=== PATIENT | male | born 1975 | race African-American/Black ===

== ENCOUNTER 2020-05-07 14:49 | Emergency (ER) | payer OTHER, SELFPAY ==
[2020-05-07 15:01] VITALS: BP 165/95; PULSE 61; RESP 20; TEMP 36.3; O2SAT 99
--- NOTE | 2020-05-07 15:23 | ED.EXTPRO ---
HPI - Extremity Problem General Chief complaint: Extremity Problem,Nontraumatic Stated complaint: ankles/feet swelling Time Seen by Provider: 05/07/20 15:24 Source: patient and RN notes reviewed Mode of arrival: ambulatory Limitations: no limitations History of Present Illness HPI Narrative: This is a 44 years old male presented office for evaluation of bilateral leg swelling for 3 days. He also reported weight gain for about 12 to 14 pounds in over 10 days. Denies any other associated symptoms include chest pain, palpitation, shortness of breath at rest, nauseous or feeling ill. He has been having trouble with insomnia due to his history of working at night for a long period of time, he has been taking [id number] Ronna-Call decongestion nightime pills for last 2 weeks to help him sleep. Denies past medical history of hypertension, CAD, high cholesterol or heart failure in the family. Related Data Home Medications Medication Instructions Recorded Confirmed zolpidem 05/07/20 Allergies Allergy/AdvReac Type Severity Reaction Status Date / Time hydroxyzine Allergy Mild SWELLING Verified 12/17/17 09:41 MEPERIDINE HCL Allergy Mild SWELLING Uncoded 12/17/17 09:41 Review of Systems Review of Systems: Narrative: CONSTITUTIONAL: Denies fever or feeling ill. ENT: Denies rhinorrhea, congestion, sore throat CARDIOVASCULAR: Denies chest pain, palpitation. Reports lower leg edema. RESPIRATORY: Denies dyspnea, wheezing, cough GASTROINTESTINAL: Denies abdominal pain, nausea, vomiting, diarrhea. GENITOURINARY: Denies urinary symptoms SKIN: Denies rash MUSCULOSKELETAL: Denies acute back pain NEUROLOGIC: Denies lightheaded/dizziness All systems reviewed & are unremarkable except as noted in HPI and below PMFSH Past Medical History Medical History (Updated 05/07/20 @ 15:51 by KYLE Calvert) Insomnia Surgical History Surgical History (Updated 05/07/20 @ 15:51 by KYLE Calvert) History of repair of ACL Hx of aortic valve replacement Comments At time of signature, I agree with nursing past medical, surgical, social and family history. There is no relevant family history pertinent to the presenting complaint. Exam Narrative: Exam Narrative: GENERAL: This is a well-nourished, well-developed patient, in no apparent distress. EYES: Sclera clear/white. Vision is grossly intact. EARS: External ears normal. Hearing grossly intact. NOSE: External nose normal CARDIOVASCULAR: Regular rate and rhythm without murmurs, gallops, or rubs. RESPIRATORY: Clear to auscultation. Breath sounds equal bilaterally. No wheezes, rales, or rhonchi. GASTROINTESTINAL: Abdomen soft, non-tender, nondistended. Bowel sounds are active. No hepato-splenomegaly, or palpable masses. No guarding. SKIN: warm, intact with no suspicious lesions or rash, good texture and turgor. NEURO: awake, alert, and oriented to person, place and time. There were no obvious focal neurologic abnormalities. Steady gait EXTREMITIES: Normal range of motion. Pitting edematous noted in lower legs. BACK: Nontender without deformity or crepitance. Ana Coma Scale Eye Opening: Spontaneous 4 Ana Coma Scale Motor: Obeys Commands 6 [place] Coma Scale Verbal: Oriented 5 Course Vital Signs Vital signs: Vital Signs Temperature 97.4 F L 05/07/20 15:01 Pulse Rate 61 05/07/20 15:01 Respiratory Rate 20 05/07/20 15:01 Blood Pressure 165/95 H 05/07/20 15:01 Pulse Oximetry 99 05/07/20 15:01 Temperature 97.4 F L 05/07/20 15:01 Pulse Rate 61 05/07/20 15:01 Respiratory Rate 20 05/07/20 15:01 Blood Pressure 165/95 H 05/07/20 15:01 Pulse Oximetry 99 05/07/20 15:01 MDM - Extremity (Nontraumatic) MDM Narrative Medical decision making narrative: Elevated blood pressure noted, recommend follow-up with his doctor for recheck in 2 weeks Discharge instructions reviewed with patient, as well as provided in writing per stormy
== END 2020-05-07 15:49 | disposition home or self-care (01) ==
PROVIDERS: Emergency Provider Nurse Practitioner; PCP Family Medicine
DX: R60.0 Localized edema (principal); Z96.651 Presence of right artificial knee joint; I34.1 Nonrheumatic mitral (valve) prolapse; R03.0 Elevated blood-pressure reading, without diagnosis of hypertension
CPT/HCPCS: 99211; G0463

== ENCOUNTER 2020-06-02 11:36 | Emergency (ER) | payer OTHER, SELFPAY ==
--- NOTE | ~2020-06-02 | XR_ITS ---
XR chest 2V DATE: 06/02/2020 13:29 INDICATION: Midsternal chest pain for one month. TECHNIQUE: PA and lateral views COMPARISON: 12/17/2017 PA and lateral chest FINDINGS: Normal heart size. No hilar or mediastinal enlargement. No pulmonary infiltrate or consolid ation, pleural effusion or pulmonary vascular congestion or pneumothorax. Postoperative change from cervical spine fusion. Mild dextroscoliosis of the thoracic spine. IMPRESSION: No active cardiopulmonary disease Reviewed, dictated and finalized at location A.
[2020-06-02 12:05] VITALS: BP 174/93; PULSE 84; RESP 16; TEMP 37.1; O2SAT 98
--- NOTE | 2020-06-02 12:54 | ECG_ITS ---
Measurements Intervals [place] Rate: 77 P: 18 [place]: 162 QRS: -12 QRSD: 106 T: 37 QT: 365 QTc: 413 Interpretive Statements SINUS RHYTHM INCOMPLETE RIGHT BUNDLE BRANCH BLOCK DELAYED PRECORDIAL R/S TRANSITION BORDERLINE ECG Electronically Signed On 06-02-2020 12:58:56 CDT by George Haines D.O.
[2020-06-02 12:55] VITALS: BP 151/88; PULSE 84; RESP 23; O2SAT 97
[2020-06-02 12:58] VITALS: PULSE 84
[2020-06-02 13:22] LABS: Basophils Absolute Auto 0.1 K/mm3 (0.0-0.1); Basophils Percent Auto 1.3 % (0.2-1.2); Eosinophils Absolute Auto 0.1 K/mm3 (0-0.3); Eosinophils Percent Auto 1.4 % (0-4.4); Hematocrit 42.1 % (42.0-52.0); Hemoglobin 14.2 g/dL (14.0-18.0); Immature Granulocyte Absolute 0.03 K/mm3 (0.00-0.031); Immature Granulocyte Percent A 0.4 % (0-0.5); Lymphocytes Absolute Auto 1.85 K/mm3 (0.9-3.2); Lymphocytes Percent Auto 26.4 % (18.3-44.2); Mean Corpuscular HGB Conc 33.7 g/dl (32-36); Mean Corpuscular Hemoglobin 27.5 pg (26-34); Mean Corpuscular Volume 81.6 fl (80-100); Mean Platelet Volume 9.3 fl (7.4-10.4); Monocytes Absolute Auto 0.5 K/mm3 (0.1-0.6); Monocytes Percent Auto 6.7 % (2.6-8.5); Neutrophils Absolute Auto 4.5 K/mm3 (1.3-6.7); Neutrophils Percent Auto 63.8 % (45.5-73.1); Platelet Count Result 280 k/mm3 (150-375); Red Blood Count 5.16 M/mm3 (4.6-6.20); Red Cell Distribution Width 14.2 % (11.5-14.5)
[2020-06-02 13:31] LABS: Prothrombin Time 13.3 Seconds (11.1-14.7)
[2020-06-02 13:32] LABS: Partial Thromboplastin Time 37.3 SECONDS (22.3-36.8)
[2020-06-02 13:47] LABS: Blood Urea Nitrogen 13 mg/dL (9-20); Calcium 9.3 mg/dL (8.4-10.2); Carbon Dioxide 25 mmol/L (22-30); Chloride 104 mmol/L (98-107); Estimated CRCL calculation 114 ml/min; Estimated Glomerular Filt Rate > 60; Glucose 106 mg/dL (75-110); Sodium 139 mmol/L (137-145)
[2020-06-02 13:58] LABS: Troponin I < 0.012 ng/mL (0.000-0.034)
[2020-06-02] MEDS: ASPIRIN 81 MG CHEWABLE TABLET 243 MG PO (14:02)
[2020-06-02 14:14] VITALS: BP 157/83; PULSE 70; RESP 18; O2SAT 95
--- NOTE | 2020-06-02 14:24 | ED.CHESTPAIN ---
HPI - Chest Pain General Chief Complaint: Chest Pain Stated Complaint: chest pain x 3 weeks Time Seen by Provider: 06/02/20 13:11 Source: patient History of Present Illness HPI narrative: 44 years old -[place] male, unremarkable past medical history presents with constant pain at the right chest, with intermittent flareup. For the last 2 months. Patient did not seen a doctor yet, squeezing type of pain, no radiation, showed no shortness of breath. Patient did not try any [id number] medication yet. Currently his pain is 3 out of 10. Patient denies any fever, chills, nausea, vomiting, shortness of breath, coughing, exposure to anybody with COVID-19. Patient does not smoke, does not drink, does not use drugs, no family history of coronary artery disease. Related Data Home Medications Medication Instructions Recorded Confirmed zolpidem 10 mg PO 05/07/20 esomeprazole magnesium [Nexium] 20 mg PO DAILY 06/02/20 06/02/20 loratadine [Claritin] 10 mg PO DAILY 06/02/20 06/02/20 Allergies Allergy/AdvReac Type Severity Reaction Status Date / Time hydroxyzine Allergy Mild SWELLING Verified 06/02/20 13:03 MEPERIDINE HCL Allergy Mild SWELLING Uncoded 06/02/20 13:03 Review of Systems Review of Systems: Narrative: CONSTITUTIONAL: Denies fever, chills, or sweats. EYES: Denies visual changes, redness, or discharge. ENT: Denies rhinorrhea, congestion, sore throat, or otalgia. CARDIOVASCULAR: Denies chest pain, palpitations, or edema. RESPIRATORY: Denies cough or dyspnea. GASTROINTESTINAL: Denies abdominal pain, nausea, vomiting, or diarrhea. GENITOURINARY: Denies dysuria or hematuria. SKIN: Denies rash or itching. MUSCULOSKELETAL: Denies back pain, joint pain, or myalgia. NEUROLOGIC: Denies headache, numbness, or weakness. PSYCHIATRIC: Denies anxiety or depression. [facility] Past Medical History Medical History (Updated 06/02/20 @ 14:32 by Doreen Baca MD) Insomnia Surgical History Surgical History (Updated 05/07/20 @ 15:51 by KYLE Calvert) History of repair of ACL Hx of aortic valve replacement Social History Social History : Male Course Course Emergency Course: Stable Vital Signs Vital signs: Vital Signs Temperature 37.1 C 06/02/20 12:05 Pulse Rate 84 06/02/20 12:05 Respiratory Rate 16 06/02/20 12:05 Blood Pressure 174/93 H 06/02/20 12:05 Pulse Oximetry 98 06/02/20 12:05 Temperature 37.1 C 06/02/20 12:05 Pulse Rate 70 06/02/20 14:14 Respiratory Rate 18 06/02/20 14:14 Blood Pressure 157/83 H 06/02/20 14:14 Pulse Oximetry 95 06/02/20 14:14 MDM - Chest Pain MDM Narrative Medical decision making narrative: Noncardiac chest pain is my concern. Musculoskeletal pain is high likely. Cardiac protocol ordered. Chest x-ray. Further plan to follow Differential Diagnosis Differential diagnosis: Likely stable angina, costochondritis and chest pain Lab Data Result diagrams: 06/02/20 13:12 06/02/20 13:12 Labs: Lab Results 06/02/20 06/02/20 06/02/20 Range/Units 13:12 13:12 13:12 WBC 7.0 (4.5-10.0) K/mm3 RBC 5.16 (4.6-6.20) M/mm3 Hgb 14.2 (14.0-18.0) g/dL Hct 42.1 (42.0-52.0) % MCV 81.6 (80-100) fl MCH 27.5 (26-34) pg MCHC 33.7 (32-36) g/dl RDW 14.2 (11.5-14.5) % Plt Count 280 (150-375) k/mm3 MPV 9.3 (7.4-10.4) fl Immature Gran % (Auto) 0.4 (0-0.5) % Neut % (Auto) 63.8 (45.5-73.1) % Lymph % (Auto) 26.4 (18.3-44.2) % Coffee % (Auto) 6.7 (2.6-8.5) % Eos % (Auto) 1.4 (0-4.4) % Baso % (Auto) 1.3 H (0.2-1.2) % Lymph # (Auto) 1.85 (0.9-3.2) K/mm3 Coffee # (Auto) 0.5 (0.1-0.6) K/mm3 Eos # (Auto) 0.1 (0-0.3) K/mm3 Baso # (Auto) 0.1 (0.0-0.1) K/mm3 Abs Immat Gran (auto) 0.03 (0.00-0.031) K/mm3 Absolute Neuts (auto) 4.5 (1.3-6.7)
[2020-06-02 14:43] VITALS: BP 157/83; PULSE 66; RESP 20; O2SAT 96
== END 2020-06-02 14:45 | disposition home or self-care (01) ==
PROVIDERS: Emergency Medicine; Emergency Provider Emergency Medicine; PCP Family Medicine
DX: R07.9 Chest pain, unspecified (principal)
CPT/HCPCS: 36415; 71046; 80048; 84484; 85025; 85610; 85730; 93005; 99284; A9270

== ENCOUNTER 2020-07-03 19:50 | Emergency (ER) | payer OTHER, SELFPAY ==
[2020-07-03 20:05] VITALS: BP 163/98; PULSE 76; RESP 14; TEMP 36.5; O2SAT 99
--- NOTE | 2020-07-03 21:41 | PC.NURSE ---
Addendum entered by Rusty Cervantes RN 07/03/20 21:42: This note should read: Patient called to go to room, no answer at this time. Original Note: Patient called to triage, no answer at this time.
== END 2020-07-03 21:41 | disposition left against medical advice (07) ==
LOC: ANHED 23:10
PROVIDERS: PCP Family Medicine
DX: Z53.21 Procedure and treatment not carried out due to patient leaving prior to being seen by health care provider (principal)
CPT/HCPCS: 99199

== ENCOUNTER 2022-10-03 08:26 | Emergency (ER) | payer OTHER, SELFPAY ==
[2022-10-03 08:30] VITALS: BP 152/67; PULSE 82; RESP 17; TEMP 37.1; O2SAT 99
--- NOTE | 2022-10-03 08:58 | ED.BACK ---
HPI - Back Pain/Injury General Chief Complaint: Back Pain/Injury <JAMESON Wilson Last Filed: 10/03/22 09:44> Stated Complaint: back spasms <JAMESON Wilson Last Filed: 10/03/22 09:44> Time Seen by Provider: 10/03/22 08:51 <JAMESON Wilson Last Filed: 10/03/22 09:44> History of Present Illness HPI Narrative: Patient is a 46-year-old male with no significant past medical history here for evaluation of left-sided back spasms since yesterday. Patient states that he was helping his uncle move out of bed, bending over at his hips when he noticed a spasm in the left side of his back. Yesterday, he attempted Tylenol and his TENS unit without significant relief. Today he woke up and back pain was present on both sides. He has been able to walk but states it is somewhat painful. Denies any incontinence or retention of bowel or bladder, fevers, chills, direct trauma to the back. <JAMESON Wilson Last Filed: 10/03/22 09:44> Related Data Home Medications: Home Medications Medication Instructions Recorded Confirmed zolpidem 10 mg tablet 10 mg PO 05/07/20 esomeprazole magnesium 20 mg 20 mg PO DAILY 06/02/20 06/02/20 capsule,delayed release (Nexium) loratadine 10 mg tablet (Claritin) 10 mg PO DAILY 06/02/20 06/02/20 <JAMESON Wilson Last Filed: 10/03/22 09:44> Allergies/Adverse Reactions: Allergies Allergy/AdvReac Type Severity Reaction Status Date / Time hydroxyzine Allergy Mild SWELLING Verified 10/03/22 08:59 meperidine [From Demerol] Allergy Swelling Verified 10/03/22 08:59 MEPERIDINE HCL Allergy Mild SWELLING Uncoded 10/03/22 08:59 <JAMESON Wilson Last Filed: 10/03/22 09:44> Review of Systems Review of Systems: Gen.: Denies fevers or chills Eyes: Denies eye pain or visual change ENT: Denies congestion Respiratory: Denies shortness of breath or cough CV: Denies chest pain or palpitations GI: Denies abdominal pain nausea, emesis or diarrhea denies burning, urgency, frequency or hematuria Musculoskeletal: Reports back pain. Neuro: Denies numbness, tingling, weakness or focal weakness Skin: Denies rash Except as documented, all other systems reviewed and negative <Karen Casillas PA-C - Last Filed: 10/03/22 09:44> [facility] Past Medical History Medical History: Medical History Insomnia <Karen Casillas PA-C - Last Filed: 10/03/22 09:44> Surgical History Surgical History: Surgical History History of repair of ACL Hx of aortic valve replacement <Karen Casillas PA-C - Last Filed: 10/03/22 09:44> Social History Social History: Social History Gender identity (if verbalized by the patient): Male <Karen Casillas PA-C - Last Filed: 10/03/22 09:44> Exam Narrative: APPEARANCE: Well appearing, no pain in distress, well-nourished. Head: Normocephalic and atraumatic. EYES: PERRLA/EOMI, conjunctivae clear NOSE: No nasal drainage EARS: External ear normal in appearance THROAT: Oropharynx is clear. Mucous membranes are moist. NECK: Supple. No adenopathy, no masses. RESPIRATORY: Airway patent, respirations nonlabored. Clear to auscultation bilaterally, no rales, rhonchi, wheezing. CARDIOVASCULAR: Regular rate and rhythm without murmurs, rubs, or gallops. ABDOMINAL: Normoactive bowel sounds. Soft, nontender, nondistended. No rebound tenderness or guarding. MUSCULOSKELETAL: Palpable muscle spasm to the left paraspinal muscles along t9-t10. No midline tenderness to C, T, L-spine. Normal gait. NEURO: No weakness in limbs. Normal speech. No focal neurologic deficits. SKIN: Skin is warm and dry. No rashes. PSYCHIATRIC: Normal affect/mood. <Karen Casillas PA-C - Last Filed:
[2022-10-03] MEDS: KETOROLAC 30 MG/ML VIAL (*BKC) IM (09:03)
[2022-10-03] MEDS: LIDOCAINE 5% PATCH 1 PATCH TRANSDERM (09:24)
== END 2022-10-03 09:50 | disposition home or self-care (01) ==
PROVIDERS: Emergency Provider Emergency Medicine; PCP Family Medicine
DX: S39.012A Strain of muscle, fascia and tendon of lower back, initial encounter (principal); Z95.2 Presence of prosthetic heart valve; X50.0XXA Overexertion from strenuous movement or load, initial encounter; Y93.F2 Activity, caregiving, lifting
CPT/HCPCS: 96372; 99283; A9270; J1885

== ENCOUNTER 2022-10-05 02:59 | Emergency (ER) | payer OTHER, SELFPAY ==
[2022-10-05 03:05] VITALS: BP 143/94; PULSE 78; RESP 16; O2SAT 100
[2022-10-05] MEDS: HYDROcodone/acetaminophen (*CRX) 5-325 MG TABLET 1 TAB PO (03:18)
[2022-10-05] MEDS: KETOROLAC (*BKC) 60 MG/2 ML VIAL IM (03:18)
[2022-10-05] MEDS: ORPHENADRINE CITRATE 100 MG TABLET.ER PO (03:19)
--- NOTE | 2022-10-05 03:24 | ED.GENADULT ---
HPI - General Adult General Chief complaint: Back Pain/Injury Stated complaint: back pain Time Seen by Provider: 10/05/22 03:06 History of Present Illness HPI narrative: Patient is a 46-year-old gentleman who presents emergency department with chief complaint of back pain patient states has been having pain for several days in the left muscles of his back after he was lifting a family member who was seen in the emergency department several muscle relaxers saw his primary provider who started him on Tylenol with codeine patient states he last took a dose around 9 PM this evening patient states the pain is worse with movement and improved with rest the patient denies bowel or bladder dysfunction denies foot drop Related Data Home Medications Medication Instructions Recorded Confirmed zolpidem 10 mg tablet 10 mg PO 05/07/20 esomeprazole magnesium 20 mg 20 mg PO DAILY 06/02/20 06/02/20 capsule,delayed release (Nexium) loratadine 10 mg tablet (Claritin) 10 mg PO DAILY 06/02/20 06/02/20 Allergies Allergy/AdvReac Type Severity Reaction Status Date / Time hydroxyzine Allergy Mild SWELLING Verified 10/03/22 08:59 meperidine [From Demerol] Allergy Swelling Verified 10/03/22 08:59 MEPERIDINE HCL Allergy Mild SWELLING Uncoded 10/03/22 08:59 Review of Systems Review of Systems: A 10 system review of systems was completed on the patient and is negative except for what is stated in the HPI. Nursing and ancillary documentation was reviewed. [facility] [place] Past Medical History Medical History Insomnia Surgical History Surgical History History of repair of ACL Hx of aortic valve replacement Social History Social History Gender identity (if verbalized by the patient): Male Exam Narrative: GENERAL: Well-appearing, well-nourished, and in no acute distress. HEAD: Normocephalic, atraumatic. EYES: PERRLA and EOMI. ENT: Nares clear, no rhinorrhea or epistaxis. Mucous membranes moist. NECK: Supple. CHEST: Clear to auscultation. No respiratory distress. HEART: Regular rate and rhythm. No murmur heard. Normal peripheral pulses. ABDOMEN: Soft, nontender, nondistended, normal active bowel sounds. Back: There is tenderness to palpation of the paraspinous muscles of the back EXTREMITIES: Normal range of motion. No edema. SKIN: Warm, dry, no rash. NEURO: No focal deficits. Alert and oriented x3. No saddle anesthesia, moves all extremities normally PSYCH: Normal mood and affect. Course Course Emergency Course: Patient is feeling somewhat better but still sore. He was discussed with the patient that there is a high likelihood that he will be sore for several days. The patient was instructed to return precautions if he develops bowel or bladder dysfunction or motor weakness Vital Signs Vital signs: Vital Signs Pulse Rate 78 10/05/22 03:05 Respiratory Rate 16 10/05/22 03:05 Blood Pressure 143/94 H 10/05/22 03:05 Pulse Oximetry 100 10/05/22 03:05 Oxygen Delivery Room Air 10/05/22 03:05 Pulse Rate 78 10/05/22 03:05 Respiratory Rate 16 10/05/22 03:05 Blood Pressure 143/94 H 10/05/22 03:05 Pulse Oximetry 100 10/05/22 03:05 Oxygen Delivery Room Air 10/05/22 03:05 Medical Decision Making Vital Signs Vital Signs: Vital Signs Pulse Rate 78 10/05/22 03:05 Respiratory Rate 16 10/05/22 03:05 Blood Pressure 143/94 H 10/05/22 03:05 Pulse Oximetry 100 10/05/22 03:05 Oxygen Delivery Room Air 10/05/22 03:05 Pulse Rate 78 10/05/22 03:05 Respiratory Rate 16 10/05/22 03:05 Blood Pressure 143/94 H 10/05/22 03:05 Pulse Oximetry 100 10/05/22 03:05 Oxygen Delivery Room Air 10/05/22 03:05 Discharge Plan Discharge Clinical Impression: Strain of lumbar region Patient Disposit
== END 2022-10-05 04:44 | disposition home or self-care (01) ==
PROVIDERS: Emergency Provider Emergency Medicine; PCP Family Medicine
DX: S39.012A Strain of muscle, fascia and tendon of lower back, initial encounter (principal); X50.0XXA Overexertion from strenuous movement or load, initial encounter
CPT/HCPCS: 96372; 99283; A9270; J1885

== ENCOUNTER 2022-10-07 03:20 | Emergency (ER) | payer OTHER, SELFPAY ==
--- NOTE | ~2022-10-07 | CT_ITS ---
EXAMINATION: CT abdomen pelvis w con DATE: 10/07/2022 07:14 INDICATION: Left lower quadrant abdominal pain. TECHNIQUE: Computed tomography (CT) of the abdomen and pelvis was performed with 100 mL Omnipaque 350 intravenous contrast. Automated exposure control and iterative reconstruction technique were employe d. The dose-length product was 1452.49 mGy-cm. COMPARISON: CT abdomen and pelvis 03/01/2015 FINDINGS: The visualized portions of the lung bases demonstrate mild atelectasis. No pleural effusion . The heart size is normal. No pericardial effusion. The liver is normal. There are gallstones in the gallbladder, which is normal in size. The spleen, pancreas, adrenal glands, and kidneys are normal. There are small bilateral inguinal hernias containing fat. The appendix is normal. There are no patho logically enlarged lymph nodes. There is no free intraperitoneal fluid. There are changes of anterior fusion procedure at L5-S1. There is mild thoracolumbar spondylosis. IMPRESSION: 1. Small bilateral inguinal hernias containing fat. Reviewed, dictated and finalized at location A. 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
--- NOTE | ~2022-10-07 | US_ITS ---
EXAMINATION: US scrotum doppler DATE: 10/07/2022 05:32 INDICATION: Scrotal lump. TECHNIQUE: Grayscale and Doppler ultrasound images of the testes were obtained. COMPARISON: CT abdomen and pelvis 10/07/2022 FINDINGS: The right testis measures 3.9 x 3.8 x 2.0 cm. The left testis measures 3.7 x 3.5 x 1.8 cm. There is normal vascular flow to both testes. The right epididymis is normal with normal vascular nay w. The left epididymis is normal with normal vascular flow. There is no varicocele or hydrocele. Scro bri skin thickening is noted. IMPRESSION: 1. Scrotal skin thickening. Reviewed, dictated and finalized at location A. WORKER IMPRESSION: 1. Scrotal skin thickening.
--- NOTE | 2022-10-07 05:25 | ED.GENADULT ---
HPI - General Adult General Chief complaint: Back Pain/Injury History of Present Illness HPI narrative: Is a 46-year-old gentleman who presents emergency department with a chief complaint of back pain and scrotal pain. Patient reports he was seen in the emergency department for back pain and then has noticed over the last several days he had a small area in his scrotum that has become progressively more swollen the patient states it is tender to touch reports that he has pain in the scrotum and testicles. Patient states he also has the pain radiating to his back. The patient denies fever denies history of diabetes. Patient denies crepitance or fluctuance in the area. Patient denies penile discharge or burning with urination Related Data Home Medications Medication Instructions Recorded Confirmed zolpidem 10 mg tablet 10 mg PO 05/07/20 esomeprazole magnesium 20 mg 20 mg PO DAILY 06/02/20 06/02/20 capsule,delayed release (Nexium) loratadine 10 mg tablet (Claritin) 10 mg PO DAILY 06/02/20 06/02/20 Allergies Allergy/AdvReac Type Severity Reaction Status Date / Time hydroxyzine Allergy Mild SWELLING Verified 10/03/22 08:59 meperidine [From Demerol] Allergy Swelling Verified 10/03/22 08:59 MEPERIDINE HCL Allergy Mild SWELLING Uncoded 10/03/22 08:59 Review of Systems Review of Systems: A 10 system review of systems was completed on the patient and is negative except for what is stated in the HPI. Nursing and ancillary documentation was reviewed. PMFSH Past Medical History Medical History Insomnia Surgical History Surgical History History of repair of ACL Hx of aortic valve replacement Social History Social History Gender identity (if verbalized by the patient): Male Exam Narrative: GENERAL: Well-appearing, well-nourished, and in no acute distress. HEAD: Normocephalic, atraumatic. EYES: PERRLA and EOMI. ENT: Nares clear, no rhinorrhea or epistaxis. Mucous membranes moist. NECK: Supple. CHEST: Clear to auscultation. No respiratory distress. HEART: Regular rate and rhythm. No murmur heard. Normal peripheral pulses. ABDOMEN: Soft, nontender, nondistended, normal active bowel sounds. : There is swelling present in the scrotum is tender to touch there is no crepitance there is no necrotic tissue there is no ulceration EXTREMITIES: Normal range of motion. No edema. SKIN: Warm, dry, no rash. NEURO: No focal deficits. Alert and oriented x3. PSYCH: Normal mood and affect. Discharge Plan Discharge Prescriptions: No Action zolpidem 10 mg tablet 10 mg PO cyclobenzaprine 10 mg tablet 10 mg PO HS PRN (Reason: muscle spasm) Qty: 7 0RF loratadine [Claritin] 10 mg Tablet 10 mg PO DAILY esomeprazole magnesium [Nexium] 20 mg Capsule,Delayed Release(Dr/Ec) 20 mg PO DAILY Follow-up/Referrals: Umesh,Kenny Tolentino MD [Primary Care Provider] -
[2022-10-07 05:35] VITALS: BP 111/60; PULSE 102; RESP 18; TEMP 37.4; O2SAT 96
[2022-10-07] MEDS: MORPHINE SULFATE (*CRX) 4 MG/ML INJ IV PUSH (05:45)
--- NOTE | 2022-10-07 07:10 | PC.NURSE ---
Report given to Robina BHATIA
--- NOTE | 2022-10-07 07:16 | PC.NURSE ---
assumed care of pt at time. Pt laying on stretcher and resting.
[2022-10-07 07:31] LABS: Lactic Acid 1.3 mmol/L (0.7-2.0)
[2022-10-07 07:32] LABS: Alanine Aminotransferase 55 U/L (6-50); Albumin Level 4.6 g/dL (3.5-5.1); Alkaline Phosphatase 50 U/L (38-126); Anion Gap 12 mmol/L (8-16); Aspartate Amino Transferase 41 U/L (17-59); Bilirubin,Total 0.8 mg/dL (0.2-1.3); Blood Urea Nitrogen 17 mg/dL (9-20); Calcium 9.4 mg/dL (8.4-10.2); Carbon Dioxide 27 mmol/L (22-30); Chloride 97 mmol/L (98-107); Estimated Glomerular Filt Rate > 60; Glucose 110 mg/dL (65-110); Lipase 48 U/L (23-300); Potassium 3.9 mmol/L (3.4-5.0); Sodium 136 mmol/L (137-145)
[2022-10-07 07:33] LABS: Basophils Absolute Auto 0.1 K/mm3 (0.0-0.1); Basophils Percent Auto 0.5 % (0.2-1.2); Eosinophils Absolute Auto 0.1 K/mm3 (0-0.3); Eosinophils Percent Auto 0.5 % (0-4.4); Hematocrit 41.6 % (42.0-52.0); Hemoglobin 14.1 g/dL (14.0-18.0); Immature Granulocyte Absolute 0.07 K/mm3 (0.00-0.031); Immature Granulocyte Percent A 0.5 % (0-0.5); Lymphocytes Absolute Auto 0.91 K/mm3 (0.9-3.2); Lymphocytes Percent Auto 6.2 % (18.3-44.2); Mean Corpuscular HGB Conc 33.9 g/dl (32-36); Mean Corpuscular Hemoglobin 28.4 pg (26-34); Mean Corpuscular Volume 83.9 fl (80-100); Mean Platelet Volume 9.4 fl (7.4-10.4); Monocytes Absolute Auto 0.9 K/mm3 (0.1-0.6); Neutrophils Absolute Auto 12.8 K/mm3 (1.3-6.7); Neutrophils Percent Auto 86.3 % (45.5-73.1); Platelet Count Result 233 k/mm3 (150-375); Red Blood Count 4.96 M/mm3 (4.6-6.20); Red Cell Distribution Width 13.2 % (11.5-14.5); White Blood Count 14.8 K/mm3 (4.5-10.0)
[2022-10-07 07:34] LABS: SARS-CoV-2 RNA PCR Negative
[2022-10-07 07:35] LABS: Appearance Urine Clear (Clear); Blood Urine Negative (Negative); Color Urine Yellow (Yellow); Glucose Urine UA Negative (Negative); Ketones Urine Negative (Negative); Protein Urine Negative (Negative); pH Urine 7.5 (5.0-9.0)
[2022-10-07 07:36] LABS: Add Urine Microscopic? NO; Bilirubin Urine Negative (Negative); Leukocyte Esterase Ur Negative LEU/UL (NEGATIVE); Nitrate Urine Negative (Negative); Urobilinogen Urine 0.2 mg/dL (<2.0)
[2022-10-07 07:40] VITALS: BP 97/71; PULSE 92; RESP 18; O2SAT 95
== END 2022-10-07 09:08 | disposition home or self-care (01) ==
PROVIDERS: Emergency Provider Emergency Medicine; PCP Family Medicine
DX: S39.012A Strain of muscle, fascia and tendon of lower back, initial encounter (principal); Z20.822 Contact with and (suspected) exposure to COVID-19; Z95.2 Presence of prosthetic heart valve; N50.82 Scrotal pain; X58.XXXA Exposure to other specified factors, initial encounter
CPT/HCPCS: 36415; 74177; 76870; 80053; 81003; 83605; 83690; 85025; 93976; 96374; 99284; J2270; Q9967; U0003; U0005

== ENCOUNTER 2023-12-13 09:15 | Outpatient (CLI) | payer OTHER, SELFPAY ==
--- NOTE | 2023-12-13 | ECG_ITS ---
Measurements Intervals [place] Rate: 66 P: 28 NM: 160 QRS: -15 QRSD: 104 T: 5 QT: 389 QTc: 410 Interpretive Statements SINUS RHYTHM BORDERLINE T WAVE ABNORMALITY- ANTEROLAT/INF LEADS BORDERLINE ECG COMPARED TO ECG 06/02/2020 12:16:04 NO SIGNIFICANT CHANGES Electronically Signed On 12-13-2023 10:49:04 AIR MOTOR REPAIRER by George Haines D.O.
== END 2023-12-13 09:16 | disposition home or self-care (01) ==
PROVIDERS: PCP Family Medicine
DX: Z01.810 Encounter for preprocedural cardiovascular examination (principal)
CPT/HCPCS: 93005

== ENCOUNTER 2024-06-18 11:41 | Emergency (ER) | payer OTHER, SELFPAY ==
[2024-06-18 11:53] VITALS: BP 142/84; PULSE 87; RESP 16; TEMP 36.3; O2SAT 99
--- NOTE | 2024-06-18 12:05 | ED.WOUNDLAC ---
HPI - Wound/Laceration General Chief Complaint: Wound/Laceration Stated Complaint: Left Hand Laceration Time Seen by Provider: 06/18/24 12:06 Source: patient History of Present Illness HPI narrative: Patient presents with complaints of laceration to left 5th finger. He reports that he was removing tile from a bathroom, lacerated the finger. Laceration is near the PIP joint, fairly shallow. Minimal bleeding on arrival. Patient reports tetanus up-to-date, last vaccine was 2.5 years ago. He denies other injury and trauma, voices no other concerns or complaints at this time Related Data Home Medications Medication Instructions Recorded Confirmed zolpidem 10 mg tablet 10 mg PO 05/07/20 esomeprazole magnesium 20 mg 20 mg PO DAILY 06/02/20 06/02/20 capsule,delayed release (Nexium) loratadine 10 mg tablet (Claritin) 10 mg PO DAILY 06/02/20 06/02/20 hydrochlorothiazide 25 mg tablet 25 mg PO DAILY 06/18/24 06/18/24 phentermine 37.5 mg tablet 37.5 mg PO DAILY 06/18/24 06/18/24 rosuvastatin 10 mg tablet 10 mg PO DAILY 06/18/24 06/18/24 Allergies Allergy/AdvReac Type Severity Reaction Status Date / Time hydroxyzine Allergy Mild SWELLING Verified 06/18/24 11:47 meperidine [From Demerol] Allergy Swelling Verified 06/18/24 11:47 MEPERIDINE HCL Allergy Mild SWELLING Uncoded 06/18/24 11:47 Review of Systems Review of Systems: All systems reviewed & are unremarkable except as noted in HPI and below Constitutional: Constitutional: Reports no additional constitutional complaints ENT: Reports system reviewed and no additional complaints, except as documented Cardiovascular: Cardiovascular: Reports no additional cardiovascular complaints Respiratory: Respiratory: Reports no additional respiratory complaints Gastrointestinal: Gastrointestinal: Reports no additional gastrointestinal complaints Integumentary/Breasts: Skin/Breast: Reports as per HPI [facility] Past Medical History Medical History Insomnia Surgical History Surgical History History of repair of ACL Hx of aortic valve replacement Social History Social History (Reviewed 06/18/24 @ 12:45 by ROMERO Menjivar Gender identity (if verbalized by the patient): Male Exam Const: General: cooperative, no acute distress, alert and awake Orientation/consciousness: oriented to person, oriented to place and oriented to time HENMT: Head: normal to inspection Resp: Effort & Inspection: normal respiratory effort and able to speak in complete sentences Auscultation: clear to auscultation bilaterally, no crackles, no rales, no rhonchi and no wheezes Cardio: Palpation: normal PMI Rate: regular rate Rhythm: regular rhythm Heart sounds: S1 normal heart sound present and S2 normal heart sound present Skin: Trauma: laceration (left fifth finger, superficial, approx 2.5 cm) Neuro: General: oriented to person, oriented to place and oriented to time Cranial nerves: Yes CN's II-XII intact bilaterally Extrem: Hand/finger images: 1. 2.5 cm lac, superficial Psych: Appearance: grossly normal Thought process: Normal thought process present Insight: Good insight present (Psych) Judgement: Good judgement present (Psych) Course Course Level of Care: Express Care Visit Vital Signs Vital signs: Vital Signs Temperature 97.4 F L 06/18/24 11:53 Pulse Rate 87 06/18/24 11:53 Respiratory Rate 16 06/18/24 11:53 Blood Pressure 142/84 H 06/18/24 11:53 Pulse Oximetry 99 06/18/24 11:53 Oxygen Delivery Room Air 06/18/24 11:53 Temperature 97.4 F L 06/18/24 11:53 Pulse Rate 87 06/18/24 11:53 Respiratory Rate 16 06/18/24 11:53 Blood Pressure 142/84 H 06/18/24 11:53 Pulse Oximetry 99 06/18/24 11:53 Oxygen Delivery Room Air 06/18/24 11:53 Procedures Laceration Laceration 1: Date: 06/18/24 Time: 12:30
[2024-06-18] MEDS: LIDOCAINE HCL 1% LOCAL INJ 2 ML AMPUL 4 ML INFILTRATE (12:20)
== END 2024-06-18 13:00 | disposition home or self-care (01) ==
PROVIDERS: Emergency Provider Nurse Practitioner Family; PCP Family Medicine
DX: S61.217A Laceration without foreign body of left little finger without damage to nail, initial encounter (principal); W45.8XXA Other foreign body or object entering through skin, initial encounter; Z95.2 Presence of prosthetic heart valve
CPT/HCPCS: 12001; 99213; G0463

== ENCOUNTER 2024-09-17 07:10 | Observation (INO) | payer OTHER, SELFPAY ==
[2024-09-17] VITALS (11 sets, daily range): BP systolic 119–152; BP diastolic 55–90; PULSE 56–77; RESP 12–17; TEMP 36.2–36.4; O2SAT 96–100; BMI 34.0
--- NOTE | ~2024-09-17 | CT_ITS ---
EXAMINATION: CTA brain carotid DATE: 09/17/2024 08:26 INDICATION: Dizziness. TECHNIQUE: Computed tomographic angiography (CTA) of the head was performed without and with 100 mL O mnipaque-350 intravenous contrast. CTA of the neck was performed with intravenous contrast. Automated exposure control and iterative reconstruction technique were employed. The dose-length product was 1 804.75 mGy-cm. Maximum intensity projection and volume rendered 3D-reconstructions were created by lauryn stuart technologist on a separate workstation. COMPARISON: None. FINDINGS: HEAD CTA: There is no intracranial hemorrhage, acute infarction, or abnormal intracranial mass lesion . The ventricles are normal in size. There is mild mucosal thickening in the paranasal sinuses. The o rbits are normal. The mastoid air cells are normal. The vertebral arteries are codominant. There is n o significant stenosis of basilar artery or the posterior cerebral arteries. There is no significant stenosis of the intracranial internal carotid or anterior or middle cerebral arteries. Anterior commu nicating artery is normal. The posterior communicating arteries are normal. There is no aneurysm. NECK CTA: There are no pathologically enlarged lymph nodes. There is no significant stenosis of the v ertebral arteries. There is no significant plaque in the proximal internal carotid. There is 0% steno sis of the proximal right internal carotid artery relative to normal distal artery lumen diameter (NA SCET criteria). There is 0% stenosis of the proximal left internal carotid artery relative to normal distal artery lumen diameter. There is severe cervical spondylosis. There are changes of anterior fus ion procedure from C3 to C5. IMPRESSION: 1. Normal brain. No aneurysm or significant intracranial arterial stenosis. 2. 0% stenosis of the proximal internal carotid arteries relative to normal distal artery lumen diame ters (NASCET criteria). Reviewed, dictated and finalized at location B. IMPRESSION: 1. Normal brain. No aneurysm or significant intracranial arterial stenosis. 2. 0% stenosis of the proximal internal carotid arteries relative to normal dis bri artery lumen diameters (NASCET criteria).
--- NOTE | ~2024-09-17 | MR_ITS ---
EXAMINATION: MR brain/brain stem wo/w con DATE: 09/17/2024 16:01 INDICATION: Dizziness. TECHNIQUE: Magnetic resonance imaging (MRI) of the brain and brainstem was performed without and with 20 mL MultiHance intravenous contrast. COMPARISON: Head CT 09/17/2024 FINDINGS: There is no intracranial hemorrhage, acute infarction, or abnormal intracranial mass lesion . The ventricles are normal in size. The orbits are normal. The paranasal sinuses are clear. The mast oid air cells are normal. IMPRESSION: 1. Normal brain. Reviewed, dictated and finalized at location B. IMPRESSION: 1. Normal brain.
--- NOTE | 2024-09-17 07:33 | ECG_ITS ---
Test Date: 2024-09-17 07:54:49 Measurements Intervals [place] Rate: 68 P: 27 LA: 172 QRS: -3 QRSD: 109 T: 6 QT: 388 QTc: 413 Interpretive Statements SINUS RHYTHM POSSIBLE RIGHT VENTRICULAR CONDUCTION DELAY [RSR (QR) IN V1/V2] NONSPECIFIC ST & T-WAVE ABNORMALITY No previous ECG available for comparison Electronically Signed On 09-17-2024 09:45:45 CDT by Cleveland Ramos M.D.
[2024-09-17] MEDS: SODIUM CHLORIDE 0.9% IV 1,000 ML 150 ML IV CONT (07:49)
[2024-09-17] MEDS: MECLIZINE HCL 25 MG TABLET PO (07:50)
[2024-09-17 08:05] LABS: Alanine Aminotransferase 51 U/L (6-50); Albumin Level 4.5 g/dL (3.5-5.1); Alkaline Phosphatase 44 U/L (38-126); Anion Gap 11 mmol/L (4-12); Aspartate Amino Transferase 39 U/L (17-59); Bilirubin,Total 0.5 mg/dL (0.2-1.3); Blood Urea Nitrogen 18 mg/dL (9-20); Calcium 9.2 mg/dL (8.4-10.2); Carbon Dioxide 26 mmol/L (22-30); Chloride 103 mmol/L (98-107); Estimated CRCL calculation 125 ml/min; Estimated Glomerular Filt Rate > 60; Glucose 109 mg/dL (65-110); Potassium 3.8 mmol/L (3.4-5.0); Sodium 140 mmol/L (137-145)
[2024-09-17 08:08] LABS: INR 1.3; Prothrombin Time 16.2 Seconds (11.1-14.7)
[2024-09-17 08:16] LABS: Basophils Absolute Auto 0.1 K/mm3 (0.0-0.1); Basophils Percent Auto 1.1 % (0.2-1.2); Eosinophils Absolute Auto 0.1 K/mm3 (0-0.3); Eosinophils Percent Auto 1.3 % (0-4.4); Immature Granulocyte Absolute 0.05 K/mm3 (0.00-0.031); Immature Granulocyte Percent A 0.5 % (0-0.5); Lymphocytes Absolute Auto 2.22 K/mm3 (0.9-3.2); Lymphocytes Percent Auto 24.1 % (18.3-44.2); Mean Corpuscular HGB Conc 33.3 g/dl (32-36); Mean Corpuscular Hemoglobin 28.5 pg (26-34); Mean Corpuscular Volume 85.4 fl (80-100); Mean Platelet Volume 9.5 fl (7.4-10.4); Monocytes Absolute Auto 0.7 K/mm3 (0.1-0.6); Monocytes Percent Auto 7.5 % (2.6-8.5); Neutrophils Percent Auto 65.5 % (45.5-73.1); Platelet Count Result 269 k/mm3 (150-375); Red Blood Count 5.27 M/mm3 (4.6-6.20); Red Cell Distribution Width 13.5 % (11.5-14.5); White Blood Count 9.2 K/mm3 (4.5-10.0)
[2024-09-17 09:08] LABS: Add Urine Microscopic? NO; Appearance Urine Clear (Clear); Bilirubin Urine Negative (Negative); Blood Urine Negative (Negative); Color Urine Yellow (Yellow); Glucose Urine UA Negative (Negative); Ketones Urine Negative (Negative); Leukocyte Esterase Ur Negative LEU/UL (Negative); Nitrate Urine Negative (Negative); Protein Urine Negative (Negative); Specific Grav Ur 1.041 (1.001-1.035); Urobilinogen Urine 0.2 mg/dL (<2.0); pH Urine 5.5 (5.0-9.0)
--- NOTE | 2024-09-17 12:10 | ED.DIZZY ---
HPI - Dizziness General Chief Complaint: Dizziness Stated Complaint: dizzy when woke up Time Seen by Provider: 09/17/24 07:24 Source: patient Mode of arrival: ambulatory Limitations: no limitations History of Present Illness HPI Narrative: 48-year-old with a history of hypertension, hyperlipidemia here with the complaints of disequilibrium since this morning. Patient states he was feeling fine last night woke up with these symptoms. He denies any headache. No history of nausea vomiting he denies any chest pain. No such previous episodes in the past MD elicited complaint: dizziness, difficulty walking and disequilibrium Onset (ago): hour(s) (3) Timing: awoke with symptoms Severity: moderate Description: off-balance and difficulty walking Exacerbating factors: movement/ambulation Relieving factors: nothing Associated symptoms: denies other symptoms Related Data Home Medications Medication Instructions Recorded Confirmed zolpidem 10 mg tablet 10 mg PO 05/07/20 esomeprazole magnesium 20 mg 20 mg PO DAILY 06/02/20 06/02/20 capsule,delayed release (Nexium) loratadine 10 mg tablet (Claritin) 10 mg PO DAILY 06/02/20 06/02/20 hydrochlorothiazide 25 mg tablet 25 mg PO DAILY 06/18/24 06/18/24 phentermine 37.5 mg tablet 37.5 mg PO DAILY 06/18/24 06/18/24 rosuvastatin 10 mg tablet 10 mg PO DAILY 06/18/24 06/18/24 Allergies Allergy/AdvReac Type Severity Reaction Status Date / Time hydroxyzine Allergy Mild SWELLING Verified 09/17/24 07:11 meperidine [From Demerol] Allergy Mild Swelling Verified 09/17/24 07:39 Review of Systems Review of Systems: All systems reviewed & are unremarkable except as noted in HPI and below Constitutional: Constitutional: Reports no additional constitutional complaints Eyes: Eyes: Reports no additional eye complaints ENT: Reports system reviewed and no additional complaints, except as documented Cardiovascular: Cardiovascular: Reports no additional cardiovascular complaints Respiratory: Respiratory: Reports no additional respiratory complaints Gastrointestinal: Gastrointestinal: Reports no additional gastrointestinal complaints Musculoskeletal: Musculoskeletal: Reports no additional musculoskeletal complaints Neurologic: Reports as per HPI [facility] Past Medical History Medical History Dyslipidemia Hypertension Insomnia Surgical History Surgical History History of repair of ACL Hx of aortic valve replacement Social History Social History Social History: Surrogate medical decision maker: Code status: Full code. Course Course Emergency Course: Discussed lab work, CT findings with the patient. He still wobbly in his gait was unable to walk less than [address] Figueroa will consult the patient Vital Signs Vital signs: Vital Signs Temperature 36.2 C L 09/17/24 07:14 Pulse Rate 67 09/17/24 07:14 Respiratory Rate 16 09/17/24 07:14 Blood Pressure 152/84 H 09/17/24 07:14 Pulse Oximetry 97 09/17/24 07:14 Oxygen Delivery Room Air 09/17/24 07:14 Temperature 36.2 C L 09/17/24 07:14 Pulse Rate 61 09/17/24 09:32 Respiratory Rate 14 09/17/24 09:32 Blood Pressure 121/55 L 09/17/24 09:32 Pulse Oximetry 100 09/17/24 09:32 Oxygen Delivery Room Air 09/17/24 07:14 MDM - Dizziness MDM Narrative Medical decision making narrative: 48-year-old here for a rim workup from sleep with these complaints. Denies having any headache no history of nausea and to walk straight. Do a CT of the head and a CTA to make sure has no CVA. Physical exam otherwise is unremarkable except for wobbly gait. Consult neurology. Meanwhile will give him a trial of meclizine. Differential Diagnosis Differential diagnosis: Likely benign paroxysmal positional vertigo and cerebrovascular accident Medical Records Attestation: I reviewed the patient's medical records. Lab Data Attestation: I reviewed the patient's lab results. 09/17/24 07:47 09/17/24 07:47 Labs: Lab Results 09/17/24 09/17/24 Range/Units 07:47 08:55 WBC 9.2 (4.5-10.0) K/mm3 RBC 5.27 (4.6-6.20) M/mm3 Hgb 15.0 (14.0-18.0) g/dL Hct 45.0 (42.0-52.0) % MCV 85.4 (80-100) fl MCH 28.5 (26-34) pg MCHC 33.3 (32-36) g/dl RDW 13.5 (11.5-14.5) % Plt Count 269 (150-375) k/mm3 MPV 9.5 (7.4-10.4) fl Immature Gran % (Auto) 0.5 (0-0.5) % Neut % (Auto) 65.5 (45.5-73.1) % Lymph % (Auto) 24.1 (18.3-44.2) % Douglas % (Auto) 7.5 (2.6-8.5) % Eos % (Auto) 1.3 (0-4.4) % Baso % (Auto) 1.1 (0.2-1.2) % Lymph # (Auto) 2.22 (0.9-3.2) K/mm3 Douglas # (Auto) 0.7 H (0.1-0.6) K/mm3 Eos # (Auto) 0.1 (0-0.3) K/mm3 Baso # (Auto) 0.1 (0.0-0.1) K/mm3 Abs Immat Gran (auto) 0.05 H (0.00-0.031) K/mm3 Absolute Neuts (auto) 6.0 (1.3-6.7) K/mm3 Absolute Nucleated RBC 0.000 (0.0-0.012) K/mm3 Nucleated RBC % 0.0 (0.0-0.2) % PT 16.2 H (11.1-14.7) Seconds INR 1.3 Sodium 140 (137-145) mmol/L Potassium 3.8 (3.4-5.0) mmol/L Chloride 103 (98-107) mmol/L Carbon Dioxide 26 (22-30) mmol/L Anion Gap 11 (4-12) mmol/L BUN 18 (9-20) mg/dL Creatinine 0.90 (0.7-1.3) mg/dL Estim Creat Clear Calc 125 ml/min Estimated GFR > 60 (59 - ) Glucose 109 (65-110) mg/dL Calcium 9.2 (8.4-10.2) mg/dL Total Bilirubin 0.5 (0.2-1.3) mg/dL AST 39 (17-59) U/L ALT 51 H (6-50) U/L Alkaline Phosphatase 44 (38-126) U/L Total Protein 8.0 (6.3-8.2) g/dL Albumin 4.5 (3.5-5.1) g/dL Urine Color Yellow (Yellow) Urine Appearance Clear (Clear) Urine pH 5.5 (5.0-9.0) Ur Specific [place] 1.041 H (1.001-1.035) Urine Protein Negative (Negative) mg/dL Urine Glucose (UA) Negative (Negative) mg/dL Urine Ketones Negative (Negative) mg/dL Ur Blood (Man) Negative (Negative) Urine Nitrate Negative (Negative) Urine Bilirubin Negative (Negative) Urine Urobilinogen 0.2 (<2.0) mg/dL Leukocyte Esterase Rfl Negative (Negative) TENZIN/UL Imaging Data Radiologist's impression: ITS Impressions Head/Neck CTA 09/17/24 08:28 IMPRESSION: 1. Normal brain. No aneurysm or significant intracranial arterial stenosis. 2. 0% stenosis of the proximal internal carotid arteries relative to normal distal artery lumen diameters (NASCET criteria). ECG Data EKG #1: ECG completion date: 09/17/24 ECG completion time: 07:54 EKG Interpretation: normal rate (68), sinus rhythm, no ectopy, normal QT and NL axis Discharge Plan Discharge Clinical Impression: Disequilibrium Patient Disposition: Still a Patient Condition: Stable Prescriptions: No Action phentermine 37.5 mg tablet 37.5 mg PO DAILY hydrochlorothiazide 25 mg tablet 25 mg PO DAILY rosuvastatin 10 mg tablet 10 mg PO DAILY amoxicillin-pot clavulanate 875-125 mg tablet 1 tablet PO Q12H Qty: 14 0RF zolpidem 10 mg tablet 10 mg PO cyclobenzaprine 10 mg tablet 10 mg PO HS PRN (Reason: muscle spasm) Qty: 7 0RF loratadine [Claritin] 10 mg Tablet 10 mg PO DAILY esomeprazole magnesium [Nexium] 20 mg Capsule,Delayed Release(Dr/Ec) 20 mg PO DAILY Follow-up/Referrals: Song,MD Rashi [Primary Care Provider] - Time of Disposition: 12:53 Quality Stroke Date of last known normal: 09/16/24 Stroke Scale Stroke Scale 1: Stroke scale date:: 09/17/24 Stroke scale time:: 07:45 1a Level of consciousness: alert-0 1b Level of consciousness questions: answers both correctly-0 1c Level of consciousness commands: obeys both correctly-0 2 Best gaze: normal-0 3 Visual: no visual loss-0 4 Facial palsy: normal-0 5a Motor: left arm: no drift-0 5b Motor: right arm: no drift-0 6a Motor: left leg: no drift-0 6b Motor: right leg: no drift-0 7 Limb ataxia: absent-0 8 Sensory: normal-0 9 Best language: no aphasia-0 10 Dysarthria: normal-0 11 Extinction and inattention: no abnormality-0 Level:: 0
--- NOTE | 2024-09-17 12:36 | P.HP_ITS ---
H&P: HPI History of Present Illness Date/Time: 09/17/24 12:35 Chief Complaint: Dizzy, unsteady. Narrative: This is a very pleasant 48-year-old male with hypertension and dyslipidemia who presented to the emergency department via private vehicle for evaluation of dizziness and unsteady gait. The patient provides the following history. Over the last 4 days or so he has had fullness in his ears with slightly muffled hearing. He has been feeling a bit off balance as well which was severe this morning. He describes vertigo and reports that his symptoms are worse with movement. He denies vision changes, tinnitus, facial droop, difficulty speaking and swallowing, focal weakness, and paresthesias. He also denies fever, sinus congestion, sore throat, chest pain, palpitations, sensations of irregular heart beat, nausea, vomiting, and diarrhea. In the ED: Vital signs were stable on arrival. CMP and CBC were pretty unremarkable. CTA of the head and neck was without any significant findings. He received meclizine in the ED with perhaps a bit of improvement but he remained unable to ambulate and he is being admitted in this setting for further evaluation Review of Systems Review of Systems: 12 systems were reviewed and are negativ e except for as per HPI. [facility] Past Medical History Medical History Dyslipidemia Hypertension Insomnia Surgical History Surgical History History of arthroplasty of right knee History of repair of anterior cruciate ligament of left knee Family History Family History (Updated 09/17/24 @ 22:14 by Ashley Lawrence PA-C) Other Family history non-contributory Social History Social History (Updated 09/17/24 @ 22:15 by Ashley Lawrence PA-C) Social History: Surrogate medical decision maker: Irene Garcia, niece. Code status: Full code. Smoking status: Never smoker Alcohol intake: never Substance use: never Do You Feel Safe in your Home?: Yes Lack of Transportation: No Lack of Food: Never True Current Housing: I Have Housing Concerned About Future Housing: No Difficulty Paying Gas/Electric Bills: YES Difficulty Paying for Meds: No Currently Unemployed: No Education: Bachelor's Degree Difficulty w/ Childcare or Family Care: No Additional living arrangements comments: The patient lives in [place]. 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 Spiritual care concerns: No Meds Home Medications and Allergies Home Medications Medication Instructions Recorded Confirmed Type zolpidem 10 mg tablet 12.5 mg PO HS 05/07/20 History phentermine 37.5 mg tablet 37.5 mg PO DAILY 06/18/24 09/17/24 History Allergies Allergy/AdvReac Type Severity Reaction Status Date / Time hydroxyzine Allergy Mild SWELLING Verified 09/17/24 14:03 meperidine [From Demerol] Allergy Mild Swelling Verified 09/17/24 14:03 Vital Signs Vital Signs - 24 hr 09/17/24 07:14 09/17/24 08:00 09/17/24 09:00 Temperature 97.2 F L Pulse Rate 67 63 58 L Respiratory Rate 16 12 14 Blood Pressure 152/84 H 129/74 119/66 Pulse Oximetry 97 100 98 Oxygen Delivery Room Air 09/17/24 09:32 Temperature Pulse Rate 61 Respiratory Rate 14 Blood Pressure 121/55 L Pulse Oximetry 100 Oxygen Delivery Exam Narrative: General: Well-developed gentleman sitting up in bed in no distress. Weight: 127 kg. BMI: 34.1. HEENT: PERRL, EOMI. Sclera anicteric. Oral mucosa moist. Oropharynx clear. Neck: Supple. No carotid bruits. Respiratory: Lungs are clear to auscultation bilaterally. Cardiovascular: Regular rate and rhythm with S1-S2. Gastrointestinal: Abdomen is soft, nontender, and nondistended with positive bowel sounds. Skin: Warm and dry. No rash or lesions on limited exam. Extremities: No cyanosis, clubbing, or edema. Radial and pedal pulses intact. Neurological: Alert and oriented. Cranial nerves 2-12 are grossly intact. Speech is clear. No facial asymmetry. No pronator drift. Normal [id number] and rapid alternating movements. Strength 5/5 in upper and lower extremities. Gait not assessed. Psychiatric: Pleasant and cooperative with normal mood and affect. Judgment and insight intact. H&P: Results Labs Labs: Short CBC 09/17/24 Range/Units 07:47 WBC 9.2 (4.5-10.0) K/mm3 Hgb 15.0 (14.0-18.0) g/dL Hct 45.0 (42.0-52.0) % Plt Count 269 (150-375) k/mm3 BMP 09/17/24 07:47 Sodium 140 Potassium 3.8 Chloride 103 Carbon Dioxide 26 BUN 18 Creatinine 0.90 Glucose 109 Calcium 9.2 Liver Function 09/17/24 Range/Units 07:47 Total Bilirubin 0.5 (0.2-1.3) mg/dL AST 39 (17-59) U/L ALT 51 H (6-50) U/L Alkaline Phosphatase 44 (38-126) U/L Albumin 4.5 (3.5-5.1) g/dL Urine 09/17/24 Range/Units 08:55 Urine Color Yellow (Yellow) Urine Appearance Clear (Clear) Urine pH 5.5 (5.0-9.0) Ur Specific [place] 1.041 H (1.001-1.035) Urine Protein Negative (Negative) mg/dL Urine Glucose (UA) Negative (Negative) mg/dL Imaging Head/Neck CTA 09/17/24 08:28 IMPRESSION: 1. Normal brain. No aneurysm or significant intracranial arterial stenosis. 2. 0% stenosis of the proximal internal carotid arteries relative to normal distal artery lumen diameters (NASCET criteria). Assessment and Plan Assessment and plan (1) Vertigo: Code(s): R42 - Dizziness and giddiness Status: Acute (2) Hypertension: Code(s): I10 - Essential (primary) hypertension Status: Acute (3) Dyslipidemia: Code(s): E78.5 - Hyperlipidemia, unspecified Status: Acute Plan The patient presented to the emergency department for evaluation of vertigo as detailed in HPI. Labs, imaging, EKG, and all reports were personally reviewed. CTA of the head and neck did not show any acute findings. Due to ongoing symptoms, a brain MRI has been ordered to rule out posterior circulation stroke. Suspect peripheral in etiology however and physical therapy has been consulted for vestibular therapy. Tympanic membranes are unremarkable. Flonase ordered which may help with his in station of fullness in the ears. Blood pressures were reviewed and they are stable. In fact he is no longer on medication for his blood pressure due to lifestyle changes. His home medications will be reviewed and resumed as appropriate. Findings and treatment plan were discussed with the patient. Questions were solicited and answered to satisfaction. The patient's medical management will be taken over by the hospitalist team in a.m. Quality VTE Prophylaxis VTE prophylaxis: mechanical ordered The patient has been admitted under observation status. Hospitalist MIPS Advance Care Plan I have confirmed that the patient's Advanced Care Plan is present, code status is documented, or surrogate decision maker is listed in patient medical record.: Yes Medication Reconciliation I have utilized all available resources to obtain, update and review the patients current medications (includes all prescriptions, OTC, herbals, cannabis, and nutritional supplements).: Yes
--- NOTE | 2024-09-17 12:56 | PC.NURSE ---
Lunch tray ordered for pt.
--- NOTE | 2024-09-17 13:16 | PC.NURSE ---
Report attempted to 2nd medical x1. Nurse to call back.
--- NOTE | 2024-09-17 14:11 | ADMGEN ---
This patient, Latrell Cruz, was admitted to 2 Medical Room 260-01. Patient/family oriented to hospital policies and general routines including ID bracelet, bed and alarms, visiting hours, pain management, procedures, bathroom and other care routines, personal items, smoking policy, room service/diet, and visiting hours. Information on how to activate the Rapid Response Team has been discussed. Patient/Family are encouraged to report perceived risks to care and to ask questions if they do not understand what they are told or what they should do.
[2024-09-17] MEDS: diazePAM (*CRX) 2 MG TABLET PO (18:57)
[2024-09-17] MEDS: ZOLPIDEM TARTRATE (*CRX) 5 MG TABLET 10 MG PO (20:57)
[2024-09-17] MEDS: FLUTICASONE PROPIONATE 0.05% NA SPR 16 GM BTL (*BKC) 1 SPRAY NASAL (20:57)
[2024-09-18] VITALS (8 sets, daily range): BP systolic 118–132; BP diastolic 59–71; PULSE 55–76; RESP 16–18; TEMP 36.3–36.4; O2SAT 95–99
[2024-09-18] MEDS: FLUTICASONE PROPIONATE 0.05% NA SPR 16 GM BTL (*BKC) 1 SPRAY NASAL (08:25)
--- NOTE | 2024-09-18 08:49 | P.PNIM_ITS ---
Progress Note: A&P Assessment and Plan (1) Hypertension: Code(s): I10 - Essential (primary) hypertension Status: Acute (2) Dyslipidemia: Code(s): E78.5 - Hyperlipidemia, unspecified Status: Acute (3) Vertigo: Code(s): R42 - Dizziness and giddiness Status: Acute (4) Disequilibrium: Code(s): R42 - Dizziness and giddiness Status: Acute Subjective Date/time seen: 09/18/24 08:49 Interval history: Interval history: This is a 48-year-old male who presented to the hospital on 09/17/2024 with dizziness and unsteadiness. He reported over the last 4 days he had some fullness in his ears with slight muffled hearing. Workup in the hospital included a head and neck CTA which showed a normal brain, no aneurysm or significant intracranial arterial stenosis. Brain MRI showed a normal brain, no acute findings. Initial blood work was essentially negative. UA showed a urine specific gravity of 1.041 otherwise negative. EKG showed sinus rhythm with a rate of 68, QTC 413. Patient was given 2 mg of Valium and started on IV fluids in the ED. Subjective: Patient denies. Patient endorses. Labs and imaging reviewed. Review of Systems Review of Systems: All systems reviewed & are unremarkable except as noted in HPI and below Constitutional: Constitutional: Reports as per HPI and Reports no additional constitutional complaints Eyes: Eyes: Reports as per HPI and Reports no additional eye complaints ENT: Reports system reviewed and no additional complaints, except as documented and Reports as per HPI Cardiovascular: Cardiovascular: Reports as per HPI and Reports no additional cardiovascular complaints Respiratory: Respiratory: Reports as per HPI and Reports no additional respiratory complaints Gastrointestinal: Gastrointestinal: Reports as per HPI and Reports no additional gastrointestinal complaints Genitourinary: Genitourinary: Reports no additional male genitourinary complaints and Reports as per HPI Musculoskeletal: Musculoskeletal: Reports no additional musculoskeletal complaints and Reports as per HPI Integumentary/Breasts: Skin/Breast: Reports system reviewed and no additional complaints, except as docu and Reports as per HPI Neurologic: Reports system reviewed and no additional complaints, except as documented and Reports as per HPI Psychiatric: Psychiatric: Reports no additional psychiatric complaints and Reports as per HPI Exam Narrative: General: In no acute distress, well nourished Head: atraumatic, no encephalopathy Eyes: EOMI, PERRLA, sclera clear ENT: moist mucous membranes, nasal passages clear Neck: supple, no JVD, no adenopathy, trachea midline Cardiac: Normal S1 and S2. No murmur, gallops or friction rubs, peripheral pulses intact. Respiratory: Lungs clear to auscultation, no adventitious lung sounds Gastrointestinal: soft, non-distended, non-tender, normoactive bowel sounds. : voiding without difficulty. Extremities: moves all extremities well, no edema, good ROM, strength 5/5 Skin: clean, dry, intact. No wounds or lesions. Neuro: Alert and oriented x4, cranial nerves intact, no neuro deficits. Psych: normal mood, normal affect, interactive Objective Data Vital Signs Vital Signs: Vital Signs - 24 hr 09/17/24 09:00 09/17/24 09:32 09/17/24 13:16 Temperature Pulse Rate 58 L 61 62 Respiratory Rate 14 14 16 Blood Pressure 119/66 121/55 L 146/60 H Pulse Oximetry 98 100 96 Oxygen Delivery 09/17/24 12:30 09/17/24 14:30 09/17/24 16:00 Temperature 97.5 F L Pulse Rate 59 L 65 56 L Respiratory Rate 12 17 Blood Pressure 137/90 Pulse Oximetry 96 98 Oxygen Delivery 09/17/24 20:59 09/17/24 20:55 09/17/24 20:01 Temperature 97.4 F L Pulse Rate 77 77 64 Respiratory Rate 16 16 Blood Pressure 139/79 Pulse Oximetry 98 98 Oxygen Delivery Room Air 09/18/24 00:04 09/18/24 04:00 09/18/24 07:00 Temperature 97.6 F Pulse Rate 76 61 67 Respiratory Rate 16 Blood Pressure 118/59 L Pulse Oximetry 98 Oxygen Delivery 09/18/24 07:59 Temperature 97.4 F L Pulse Rate 57 L Respiratory Rate 18 Blood Pressure 126/67 Pulse Oximetry 99 Oxygen Delivery Intake/Output Intake/Output: Intake & Output 09/15/24 09/16/24 09/17/24 09/18/24 23:59 23:59 23:59 23:59 Intake Total 1222 500 Balance 1222 500 Meds/Results Medications: Active Medications Generic Name Dose Route Start Last Admin Trade Name Freq PRN Reason Stop Dose Admin Acetaminophen 650 mg 09/17/24 12:36 Acetaminophen 325 Mg Tablet PO Q4H PRN Mild Pain (1-3) or Fever Fluticasone Propionate 1 spray 09/17/24 21:00 09/18/24 08:25 Fluticasone Propionate 0.05% Na Spr 16 Gm Btl (*Bkc) NASAL 1 spray Q12HR ISIDORO Administration Ondansetron HCl 4 mg 09/17/24 12:36 Ondansetron Inj 4 Mg/2 Ml Vial IV PUSH Q4H PRN Nausea Zolpidem Tartrate 10 mg 09/17/24 18:50 09/17/24 20:57 Zolpidem Tartrate (*Crx) 5 Mg Tablet PO 10 mg HS PRN Administration Insomnia Radiology Results: ITS Impressions Head/Neck CTA 09/17/24 08:28 IMPRESSION: 1. Normal brain. No aneurysm or significant intracranial arterial stenosis. 2. 0% stenosis of the proximal internal carotid arteries relative to normal distal artery lumen diameters (NASCET criteria). Brain MRI 09/17/24 16:02 IMPRESSION: 1. Normal brain. Labs Labs: Laboratory Results - last 24 hr 09/17/24 08:55 Urine Color Yellow Urine Appearance Clear Urine pH 5.5 Ur Specific [place] 1.041 H Urine Protein Negative Urine Glucose (UA) Negative Urine Ketones Negative Ur Blood (Man) Negative Urine Nitrate Negative Urine Bilirubin Negative Urine Urobilinogen 0.2 Leukocyte Esterase Rfl Negative
--- NOTE | 2024-09-18 13:00 | PM.DS ---
DS: Admitting Diagnosis Discharge Date 09/18/24 Admitting Diagnosis Vertigo Hypertension Dyslipidemia DS: Discharge Diagnosis Discharge Diagnosis (1) Hypertension: Code(s): I10 - Essential (primary) hypertension Status: Acute (2) Dyslipidemia: Code(s): E78.5 - Hyperlipidemia, unspecified Status: Acute (3) Vertigo: Code(s): R42 - Dizziness and giddiness Status: Acute (4) Disequilibrium: Code(s): R42 - Dizziness and giddiness Status: Acute DS: Summary Hospital Course Reason for hospitalization: Vertigo Hypertension Dyslipidemia Hospital Course: This is a 48-year-old male who presented to the hospital on 09/17/2024 with dizziness and unsteadiness. He reported over the last 4 days he had some fullness in his ears with slight muffled hearing. Workup in the hospital included a head and neck CTA which showed a normal brain, no aneurysm or significant intracranial arterial stenosis. Brain MRI showed a normal brain, no acute findings. Initial blood work was essentially negative. UA showed a urine specific gravity of 1.041 otherwise negative. EKG showed sinus rhythm with a rate of 68, QTC 413. Patient was given 2 mg of Valium and started on IV fluids in the ED. today patient states he is feeling much better and that the dizziness has resolved. He is going to continue with [id number] Flonase and Claritin/Zyrtec for his allergies. He will follow with his primary as needed. He is stable for discharge. Final diagnosis: Vertigo Status at Discharge Cognitive/behavioral status at discharge: Alert oriented x4 Functional status at discharge: independent ambulation Overall status at discharge: patient is progressing back to baseline Time Spent with Patient Time attestation: Total time spent providing and/or coordinating discharge services: Time spent: Greater than 30 minutes Exam Narrative: General: In no acute distress, well nourished Head: atraumatic, no encephalopathy Eyes: EOMI, PERRLA, sclera clear ENT: moist mucous membranes, nasal passages clear Neck: supple, no JVD, no adenopathy, trachea midline Cardiac: Normal S1 and S2. No murmur, gallops or friction rubs, peripheral pulses intact. Respiratory: Lungs clear to auscultation, no adventitious lung sounds, currently on room air Gastrointestinal: soft, non-distended, non-tender, normoactive bowel sounds. : voiding without difficulty. Extremities: moves all extremities well, no edema, good ROM, strength 5/5 Skin: clean, dry, intact. No wounds or lesions. Neuro: Alert and oriented x4, cranial nerves intact, no neuro deficits. Psych: normal mood, normal affect, interactive DS: Data Data Completed and Pending Completed studies during hospitalization: Brain MRI Head/neck CTA Pending studies at discharge: None Procedures/Treatments: None Discharge Plan Discharge Attending physician on discharge: Re Alvarenga Consulting providers: Harjeet Figueroa; Mariama Alamo Discharging Clinician: Mariama Alamo Anticipated Discharge Date/Time: 09/18/24 12:53 Patient Disposition: Home, Self-Care Activity: as tolerated Diet: as tolerated Discharge Instructions: Continue Flonase daily and Meclizine as needed for dizziness Alternate Claritin and Zyrtec every other year for your seasonal allergies Follow up with primary care doctor as needed Patient Instructions: Antibiotic Form Patient Language: [place] Stand Alone Forms: General Discharge Information Follow-up/Referrals: JerricaRashi MD [Primary Care Provider] - Keep Reg. Scheduled Appt. Discharge Medications: New fluticasone propionate 50 mcg/actuation [place],Suspension 1 spray intranasal Q12HR Qty: 1 1RF meclizine 25 mg tablet 25 mg PO BID PRN (Reason: dizziness) Qty: 30 0RF Continued phentermine 37.5 mg tablet 37.5 mg PO DAILY zolpidem 10 mg tablet 12.5 mg PO HS Date of admission: 09/17/24 12:37 Primary Care Provider: Rashi Butler Admitting Provider: Gwyn Landers Attending physician on admission: Gwyn Landers Condition: Improved Quality VTE Prophylaxis VTE prophylaxis: mechanical ordered
--- NOTE | 2024-09-18 14:08 | P.CONNEU_ITS ---
Assessment and Plan Assessment and plan (1) Vertigo: Code(s): R42 - Dizziness and giddiness Status: Acute Plan peripheral vestibular dysfunction with the continuation of physical therapy as an outpatient. Consult date: 09/18/24 HPI: Latrell Cruz is a 48 year old male Admitted to the hospital through the emergency room with the complaints of dizziness in addition to the ongoing history of hypertension, hyperlipidemia, and with no history of headaches nausea or vomiting and also with no history of such an episode in the past . Patient has been taking loratadine 10mg daily with hydrochlorothiazide 25mg daily and phentermine 37.5mg daily Hey there is a 1 going history of hypertension with dyslipidemia and has undergone aortic valve replacement. Initial vital signs were normal, CBC was normal BMP was normal, and mast scan was normal as well with negative UA initial CT scan of the head neck that he CTA documented no aneurysm or any territorial vascular involvement, EKG was without atrial fibrillation, Review of Systems Review of Systems: All systems reviewed & are unremarkable except as noted in HPI and below PMFSH Past Medical History Medical History Dyslipidemia Hypertension Insomnia Surgical History Surgical History History of arthroplasty of right knee History of repair of anterior cruciate ligament of left knee Family History Family History (Updated 09/17/24 @ 22:14 by Ashley Lawrence PA-C) Other Family history non-contributory Social History Social History (Updated 09/17/24 @ 22:15 by Ashley Lawrence PA-C) Social History: Surrogate medical decision maker: Irene Garcia, ambikaece. Code status: Full code. Smoking status: Never smoker Alcohol intake: never Substance use: never Do You Feel Safe in your Home?: Yes Lack of Transportation: No Lack of Food: Never True Current Housing: I Have Housing Concerned About Future Housing: No Difficulty Paying Gas/Electric Bills: YES Difficulty Paying for Meds: No Currently Unemployed: No Education: Bachelor's Degree Difficulty w/ Childcare or Family Care: No Additional living arrangements comments: The patient lives in [place]. Additional occupation/education comments: Retired [place] [employer]. Spiritual care concerns: No Meds Home Medications and Allergies Home Medications Medication Instructions Recorded Confirmed Type zolpidem 10 mg tablet 12.5 mg PO HS 05/07/20 History phentermine 37.5 mg tablet 37.5 mg PO DAILY 06/18/24 09/17/24 History fluticasone propionate 50 1 spray intranasal Q12HR #1 09/18/24 Rx mcg/actuation nasal applicator spray,suspension meclizine 25 mg tablet 25 mg PO BID PRN dizziness #30 tabs 09/18/24 Rx Allergies Allergy/AdvReac Type Severity Reaction Status Date / Time hydroxyzine Allergy Mild SWELLING Verified 09/17/24 14:03 meperidine [From Demerol] Allergy Mild Swelling Verified 09/17/24 14:03 Vital Signs Vital Signs - 24 hr 09/17/24 14:30 09/17/24 16:00 09/17/24 20:59 Temperature 36.4 C L 36.3 C L Pulse Rate 65 56 L 77 Respiratory Rate 17 16 Blood Pressure 137/90 139/79 Pulse Oximetry 98 98 Oxygen Delivery 09/17/24 20:55 09/17/24 20:01 09/18/24 00:04 Temperature Pulse Rate 77 64 76 Respiratory Rate 16 Blood Pressure Pulse Oximetry 98 Oxygen Delivery Room Air 09/18/24 04:00 09/18/24 07:00 09/18/24 07:59 Temperature 36.4 C 36.3 C L Pulse Rate 61 67 57 L Respiratory Rate 16 18 Blood Pressure 118/59 L 126/67 Pulse Oximetry 98 99 Oxygen Delivery 09/18/24 09:02 09/18/24 10:43 09/18/24 08:26 Temperature Pulse Rate Respiratory Rate Blood Pressure Pulse Oximetry 95 Oxygen Delivery Room Air Room Air Room Air 09/18/24 12:00 09/18/24 08:03 09/18/24 12:01 Temperature 36.4 C Pulse Rate 70 55 L 68 Respiratory Rate 18 Blood Pressure 132/71 Pulse Oximetry 99 Oxygen Delivery Exam Narrative: revealed him to be awake alert cooperative in no obvious acute distress, head normocephalic with no bruit ear nose throat examination normal, neck supple heart regular lungs clear abdomen soft neurological examination normal mental status normal speech cranial nerve examination normal motor and sensory exam normal reflexes symmetrical plantars downgoing there is no evidence of cerebellar deficit Results Labs 09/17/24 07:47 09/17/24 07:47
== END 2024-09-18 13:23 | disposition home or self-care (01) ==
LOC: ANHED 12:54 → ANH2MED 13:13
PROVIDERS: Admitting Provider Internal Medicine; Emergency Provider Family Medicine; PCP Family Medicine; Visit Provider Nurse Practitioner Acute Care
DX: R42 Dizziness and giddiness (principal); I10 Essential (primary) hypertension; E78.5 Hyperlipidemia, unspecified; Z95.4 Presence of other heart-valve replacement
CPT/HCPCS: 36415; 70496; 70498; 70553; 80053; 81003; 85025; 85610; 93005; 96360; 97161; 99285; A9270; A9577; G0378; J7030; Q9967